=== PATIENT | female | born 1945 | race Caucasian/White ===

== ENCOUNTER 2019-04-29 12:17 | Day surgery (SDC) | payer OTHER ==
[~2019-04-29] VITALS: Ht 152.4 cm; Wt 56.8 kg
[~2019-04-29 12:17] MED LIST: SODIUM CHLORIDE 0.9% 1,000 ML IV ONE
[2019-04-29] MEDS ORDERED: SODIUM CHLORIDE 0.9% 1,000 ML IV ONE (12:20)
[2019-04-29] MEDS ORDERED: BENA10TA12 PO (13:19)
[2019-04-29] MEDS ORDERED: PARO20TA24 PO (13:19)
[2019-04-29] MEDS ORDERED: TRAZ-220 PO (13:19)
[2019-04-29] MEDS ORDERED: OMEP20 PO (13:19)
[2019-04-29] MEDS ORDERED: HYDR25TA PO (13:19)
[2019-04-29] MEDS ORDERED: OMEG10005 PO (13:19)
[2019-04-29] MEDS ORDERED: CALC-1038 PO (13:19)
[2019-04-29] MEDS ORDERED: FentaNYL CITRATE-PF 100 MCG/2 ML VIAL ONE (13:52)
[2019-04-29] MEDS ORDERED: MIDAZOLAM HCL 5 MG/ML VIAL ONE (13:52)
== END 2019-04-29 17:40 | disposition home or self-care (01) ==
LOC: SURGERY 12:17
PROVIDERS: ATTEND Internal Medicine Gastroenterology
DX: K22.2 Esophageal obstruction (principal); K44.9 Diaphragmatic hernia without obstruction or gangrene; K21.9 Gastro-esophageal reflux disease without esophagitis; K29.70 Gastritis, unspecified, without bleeding; E78.00 Pure hypercholesterolemia, unspecified; F32.9 Major depressive disorder, single episode, unspecified; I10 Essential (primary) hypertension; Z79.899 Other long term (current) drug therapy; Z98.890 Other specified postprocedural states
CPT/HCPCS: 43239; 43249; J2250; J3010; J7030

== ENCOUNTER 2020-01-10 18:30 | Inpatient (IN) | payer OTHER, MEDICAID ==
[~2020-01-10] VITALS: Ht 154.9 cm; Wt 56.2 kg
[~2020-01-10 18:30] MED LIST changes: +BENA10TA77 PO; +CALC-1038 PO; +HYDR-1475 PO; +OMEG10005 PO; +OMEP20 PO; +PARO20TA24 PO; -SODIUM CHLORIDE 0.9% 1,000 ML IV ONE; +TRAZ-257 PO
[2020-01-10] MEDS ORDERED: ZOLPIDEM TARTRATE 10 MG TABLET PO PRN (21:30)
[2020-01-10] MEDS ORDERED: HALOPERIDOL 5 MG TABLET PO PRN (21:30)
[2020-01-10] MEDS ORDERED: LORazepam 1 MG TABLET PO PRN (21:30)
[2020-01-10 22:27] VITALS: BP 151/67
[2020-01-10 22:50] VITALS: BP 142/85
[2020-01-10] MEDS ORDERED: ACETAMINOPHEN 325 MG TABLET PO PRN (23:45)
[2020-01-10] MEDS ORDERED: PETROLATUM,WHITE 28 GM JELLY TP PRN (23:45)
[2020-01-10] MEDS ORDERED: MAGNESIUM HYDROXIDE SUSPENSION 30 ML UDCUP PO PRN (23:45)
[2020-01-10] MEDS ORDERED: PNEUMOCOCCAL VACCINE POLYVALENT 0.5 ML VIAL [PPSV23] IM ONE (23:45)
[2020-01-10] MEDS ORDERED: GuaiFENesin/D-METHORPHAN [SUGAR-FREE] 200-20MG/10 ML SYRUP UDCUP PO PRN (23:45)
[2020-01-10] MEDS ORDERED: ALBUTEROL SULFATE HFA 90 MCG/PUFF 8 GM INHALER IH PRN (23:45)
[2020-01-10] MEDS ORDERED: DOCUSATE SODIUM 100 MG CAPSULE PO PRN (23:45)
[2020-01-10] MEDS ORDERED: LOPERAMIDE HCL 2 MG CAPSULE PO PRN (23:45)
[2020-01-10] MEDS ORDERED: MAG HYDROX/AL HYDROX/SIMETH ES 30 ML SUSPENSION UDCUP PO PRN (23:45)
[2020-01-10] MEDS ORDERED: ONDANSETRON HCL 4 MG TABLET PO PRN (23:45)
[2020-01-10] MEDS ORDERED: NICOTINE 14 MG/24 HOUR PATCH TD PRN (23:45)
[2020-01-10] MEDS ORDERED: CloNIDine HCL 0.1 MG TABLET PO PRN (23:45)
[2020-01-11 00:51] VITALS: BP 107/77
[2020-01-11 08:01] LABS: BASOPHILS % (AUTO) 0.5 % (0.0-2.0); EOSINOPHILS % (AUTO) 3.7 % (1.0-6.0); HEMOGLOBIN 11.8 g/dL (12.0-16.0); LYMPHOCYTES # (AUTO) 1.7 K/uL (1.0-4.8); MEAN CORPUSCULAR HEMOGLOBIN 29.5 pg (26.0-34.0); MEAN CORPUSCULAR HGB CONC 32.9 G/dL (31.0-37.0); MEAN CORPUSCULAR VOLUME 90 fL (80-100); MONOCYTES # (AUTO) 0.4 K/uL (0.1-1.0); MONOCYTES % (AUTO) 9.2 % (2.0-9.0); NEUTROPHILS # (AUTO) 2.1 K/uL (1.8-7.7); NEUTROPHILS % (AUTO) 47.6 % (40.0-70.0); PLATELET COUNT (AUTO) 230 K/uL (150-450); RED BLOOD CELL COUNT(AUTO) 4.01 MIL/uL (4.00-5.20); RED CELL DISTRIBUTION WIDTH 13.6 % (11.5-14.5)
[2020-01-11 08:21] LABS: ALANINE AMINOTRANSFERASE 18 U/L (12-78); ALBUMIN 3.2 g/dL (3.4-5.0); ALKALINE PHOSPHATASE 83 U/L (46-116); ANION GAP 5 mmol/L (8-16); ASPARTATE AMINOTRANSFERASE 15 U/L (15-37); BILIRUBIN,TOTAL 0.5 mg/dL (0.1-1.0); CARBON DIOXIDE 29 mmol/L (22-29); CHLORIDE 106 mmol/L (98-107); CHOLESTEROL 145 mg/dL (131-200); CREATININE 0.88 mg/dL (0.60-1.30); FREE T4 (FREE THYROXINE) 1.04 ng/dL (0.76-1.46); GLUCOSE,RANDOM 89 mg/dL (70-110); HDL CHOLESTEROL 49 mg/dL (40-60); LDL CHOL (CALC.) 78 mg/dL (0-130); POTASSIUM 4.6 mmol/L (3.5-5.1); SODIUM SERUM 140 mmol/L (136-145); THYROID STIMULATING HORMONE 3.06 uIU/mL (0.36-3.74); TOTAL PROTEIN, SERUM 6.4 g/dL (6.4-8.2); TRIGLYCERIDES 89 mg/dL (15-150); UREA NITROGEN, BLOOD 11 mg/dL (7-18)
[2020-01-11 08:23] LABS: GLOMERULAR FILTR. RATE CALC > 60 mL/min (>60)
[2020-01-11] MEDS: OMEPRAZOLE 20 MG CAPSULE PO SCH (08:51)
[2020-01-11] MEDS: BENAZEPRIL HCL 10 MG TABLET PO SCH (08:51)
[2020-01-11] MEDS: HYDROCHLOROTHIAZIDE 25 MG TABLET PO SCH (08:51)
[2020-01-11] MEDS: OMEGA-3/DHA/EPA/FISH OIL 1,000 MG CAPSULE PO SCH (08:52)
[2020-01-11] MEDS: CALCIUM CARBONATE 500 MG CHEWABLE TABLET CHEW SCH (08:52)
[2020-01-11 08:55] VITALS: BP 115/66
[2020-01-11 16:52] VITALS: BP 101/64
[2020-01-11] MEDS: RisperiDONE 0.5 MG TABLET PO SCH (17:48)
[2020-01-12] MEDS ORDERED: TraZODone HCL 100 MG TABLET PO SCH (09:00)
[2020-01-12] MEDS: PARoxetine HCL 20 MG TABLET PO SCH (10:01)
[2020-01-12] MEDS: HYDROCHLOROTHIAZIDE 25 MG TABLET PO SCH (10:01)
[2020-01-12] MEDS: RisperiDONE 0.5 MG TABLET PO SCH ×2 (10:01→16:45)
[2020-01-12] MEDS: OMEGA-3/DHA/EPA/FISH OIL 1,000 MG CAPSULE PO SCH (10:01)
[2020-01-12] MEDS: OMEPRAZOLE 20 MG CAPSULE PO SCH (10:01)
[2020-01-12] MEDS: CALCIUM CARBONATE 500 MG CHEWABLE TABLET CHEW SCH (10:01)
[2020-01-12] MEDS: BENAZEPRIL HCL 10 MG TABLET PO SCH (10:01)
[2020-01-12 11:16] VITALS: BP 121/71
[2020-01-12 15:35] VITALS: BP 106/70
[2020-01-12 16:25] VITALS: BP 106/70
[2020-01-12] MEDS: TraZODone HCL 100 MG TABLET PO SCH (20:35)
[2020-01-13 06:17] VITALS: BP 124/77
[2020-01-13 08:38] VITALS: BP 140/83
[2020-01-13] MEDS: RisperiDONE 0.5 MG TABLET PO SCH ×2 (08:49→16:35)
[2020-01-13] MEDS: OMEGA-3/DHA/EPA/FISH OIL 1,000 MG CAPSULE PO SCH (08:49)
[2020-01-13] MEDS: BENAZEPRIL HCL 10 MG TABLET PO SCH (08:49)
[2020-01-13] MEDS: OMEPRAZOLE 20 MG CAPSULE PO SCH (08:50)
[2020-01-13] MEDS: CALCIUM CARBONATE 500 MG CHEWABLE TABLET CHEW SCH (08:50)
[2020-01-13] MEDS: HYDROCHLOROTHIAZIDE 25 MG TABLET PO SCH (08:50)
[2020-01-13] MEDS: PARoxetine HCL 20 MG TABLET PO SCH (08:50)
[2020-01-13 16:19] VITALS: BP 128/70
[2020-01-13] MEDS: TraZODone HCL 100 MG TABLET PO SCH (20:31)
[2020-01-14 04:56] VITALS: BP 126/79
[2020-01-14 08:04] VITALS: BP 114/73
[2020-01-14] MEDS: BENAZEPRIL HCL 10 MG TABLET PO SCH (08:38)
[2020-01-14] MEDS: CALCIUM CARBONATE 500 MG CHEWABLE TABLET CHEW SCH (08:38)
[2020-01-14] MEDS: RisperiDONE 0.5 MG TABLET PO SCH ×2 (08:38→16:42)
[2020-01-14] MEDS: OMEGA-3/DHA/EPA/FISH OIL 1,000 MG CAPSULE PO SCH (08:38)
[2020-01-14] MEDS: OMEPRAZOLE 20 MG CAPSULE PO SCH (08:39)
[2020-01-14] MEDS: HYDROCHLOROTHIAZIDE 25 MG TABLET PO SCH (08:39)
[2020-01-14] MEDS: PARoxetine HCL 10 MG TABLET PO SCH (08:39)
[2020-01-14 16:14] VITALS: BP 134/67
[2020-01-14] MEDS: TraZODone HCL 100 MG TABLET PO SCH (20:24)
[2020-01-15 01:17] VITALS: BP 131/78
[2020-01-15 08:17] VITALS: BP 139/90
[2020-01-15] MEDS: CALCIUM CARBONATE 500 MG CHEWABLE TABLET CHEW SCH (08:31)
[2020-01-15] MEDS: OMEPRAZOLE 20 MG CAPSULE PO SCH (08:31)
[2020-01-15] MEDS: OMEGA-3/DHA/EPA/FISH OIL 1,000 MG CAPSULE PO SCH (08:31)
[2020-01-15] MEDS: BENAZEPRIL HCL 10 MG TABLET PO SCH (08:31)
[2020-01-15] MEDS: HYDROCHLOROTHIAZIDE 25 MG TABLET PO SCH (08:31)
[2020-01-15] MEDS: RisperiDONE 0.5 MG TABLET PO SCH ×2 (08:31→16:44)
[2020-01-15] MEDS: PARoxetine HCL 10 MG TABLET PO SCH (08:31)
[2020-01-15] MEDS: IBUPROFEN 400 MG TABLET PO PRN (10:23)
[2020-01-15 16:30] VITALS: BP 104/65
[2020-01-15] MEDS: TraZODone HCL 100 MG TABLET PO SCH (20:12)
[2020-01-16 05:55] VITALS: BP 123/84
[2020-01-16] MEDS: RisperiDONE 0.5 MG TABLET PO SCH ×2 (08:01→16:35)
[2020-01-16] MEDS: BENAZEPRIL HCL 10 MG TABLET PO SCH (08:01)
[2020-01-16] MEDS: PARoxetine HCL 10 MG TABLET PO SCH (08:01)
[2020-01-16] MEDS: HYDROCHLOROTHIAZIDE 25 MG TABLET PO SCH (08:02)
[2020-01-16] MEDS: CALCIUM CARBONATE 500 MG CHEWABLE TABLET CHEW SCH (08:02)
[2020-01-16] MEDS: OMEGA-3/DHA/EPA/FISH OIL 1,000 MG CAPSULE PO SCH (08:02)
[2020-01-16] MEDS: OMEPRAZOLE 20 MG CAPSULE PO SCH (08:02)
[2020-01-16 08:12] VITALS: BP 139/78
[2020-01-16 16:12] VITALS: BP 119/61
[2020-01-16] MEDS: IBUPROFEN 400 MG TABLET PO PRN (19:01)
[2020-01-16 19:02] VITALS: BP 106/68
[2020-01-16] MEDS: TraZODone HCL 100 MG TABLET PO SCH (20:59)
[2020-01-17 00:31] VITALS: BP 100/57
[2020-01-17] MEDS: HYDROCHLOROTHIAZIDE 25 MG TABLET PO SCH (08:47)
[2020-01-17] MEDS: BENAZEPRIL HCL 10 MG TABLET PO SCH (08:48)
[2020-01-17] MEDS: PARoxetine HCL 10 MG TABLET PO SCH (08:48)
[2020-01-17] MEDS: OMEGA-3/DHA/EPA/FISH OIL 1,000 MG CAPSULE PO SCH (08:48)
[2020-01-17] MEDS: OMEPRAZOLE 20 MG CAPSULE PO SCH (08:48)
[2020-01-17] MEDS: RisperiDONE 0.5 MG TABLET PO SCH ×2 (08:48→17:06)
[2020-01-17] MEDS: CALCIUM CARBONATE 500 MG CHEWABLE TABLET CHEW SCH (08:48)
[2020-01-17 08:52] VITALS: BP 130/68
[2020-01-17 16:07] VITALS: BP 121/83
[2020-01-17] MEDS: TraZODone HCL 100 MG TABLET PO SCH (20:38)
[2020-01-18] MEDS ORDERED: RISP.5 PO (02:50)
[2020-01-18 06:28] VITALS: BP 123/68
[2020-01-18 08:49] VITALS: BP 120/55
[2020-01-18] MEDS: OMEPRAZOLE 20 MG CAPSULE PO SCH (09:19)
[2020-01-18] MEDS: CALCIUM CARBONATE 500 MG CHEWABLE TABLET CHEW SCH (09:19)
[2020-01-18] MEDS: OMEGA-3/DHA/EPA/FISH OIL 1,000 MG CAPSULE PO SCH (09:19)
[2020-01-18] MEDS: HYDROCHLOROTHIAZIDE 25 MG TABLET PO SCH (09:19)
[2020-01-18 09:20] VITALS: BP 128/82
[2020-01-18] MEDS: IBUPROFEN 400 MG TABLET PO PRN (09:20)
[2020-01-18] MEDS: PARoxetine HCL 10 MG TABLET PO SCH (09:20)
[2020-01-18] MEDS: RisperiDONE 0.5 MG TABLET PO SCH ×2 (09:20→17:12)
[2020-01-18] MEDS: BENAZEPRIL HCL 10 MG TABLET PO SCH (09:20)
[2020-01-18 16:42] VITALS: BP 140/61
[2020-01-18] MEDS: TraZODone HCL 100 MG TABLET PO SCH (20:23)
[2020-01-19 01:11] VITALS: BP 125/63
[2020-01-19] MEDS: OMEPRAZOLE 20 MG CAPSULE PO SCH (08:34)
[2020-01-19] MEDS: CALCIUM CARBONATE 500 MG CHEWABLE TABLET CHEW SCH (08:34)
[2020-01-19] MEDS: RisperiDONE 0.5 MG TABLET PO SCH ×2 (08:34→17:06)
[2020-01-19] MEDS: BENAZEPRIL HCL 10 MG TABLET PO SCH (08:34)
[2020-01-19] MEDS: PARoxetine HCL 10 MG TABLET PO SCH (08:34)
[2020-01-19] MEDS: HYDROCHLOROTHIAZIDE 25 MG TABLET PO SCH (08:34)
[2020-01-19] MEDS: OMEGA-3/DHA/EPA/FISH OIL 1,000 MG CAPSULE PO SCH (08:34)
[2020-01-19] MEDS: IBUPROFEN 400 MG TABLET PO PRN ×2 (08:42→17:06)
[2020-01-19 09:02] VITALS: BP 140/87
[2020-01-19 16:29] VITALS: BP 122/65
[2020-01-19] MEDS: TraZODone HCL 100 MG TABLET PO SCH (20:16)
[2020-01-20 00:37] VITALS: BP 135/82
[2020-01-20] MEDS: CALCIUM CARBONATE 500 MG CHEWABLE TABLET CHEW SCH (08:15)
[2020-01-20] MEDS: OMEPRAZOLE 20 MG CAPSULE PO SCH (08:15)
[2020-01-20] MEDS: RisperiDONE 0.5 MG TABLET PO SCH ×2 (08:15→17:00)
[2020-01-20] MEDS: PARoxetine HCL 10 MG TABLET PO SCH (08:15)
[2020-01-20] MEDS: HYDROCHLOROTHIAZIDE 25 MG TABLET PO SCH (08:15)
[2020-01-20] MEDS: OMEGA-3/DHA/EPA/FISH OIL 1,000 MG CAPSULE PO SCH (08:15)
[2020-01-20] MEDS: BENAZEPRIL HCL 10 MG TABLET PO SCH (08:17)
[2020-01-20 08:32] VITALS: BP 122/60
[2020-01-20] MEDS ORDERED: PARO10TA89 PO (13:55)
== END 2020-01-20 16:15 | disposition home or self-care (01) | DRG 885 ==
LOC: B2S 22:41
PROVIDERS: ADMIT Psychiatry & Neurology Psychiatry; ATTEND Psychiatry & Neurology Psychiatry
DX: F33.2 Major depressive disorder, recurrent severe without psychotic features (principal); E78.00 Pure hypercholesterolemia, unspecified; D64.9 Anemia, unspecified; I10 Essential (primary) hypertension; K21.9 Gastro-esophageal reflux disease without esophagitis; Z91.81 History of falling; Z79.899 Other long term (current) drug therapy
CPT/HCPCS: 83036; 84436; 84439; 84443

== ENCOUNTER 2020-12-10 10:58 | Day surgery (SDC) | payer OTHER ==
[2020-12-08 17:44] LABS: COVID AG,FIA SOURCE NASOPHARYNGEAL
[~2020-12-10 10:58] MED LIST changes: +BENA10TA76 PO; -BENA10TA77 PO; -HYDR-1475 PO; +LORA10TA7 PO; +MIRT30 PO; +OLAN10TA3 PO; -OMEG10005 PO; -PARO20TA24 PO; +SIMV-259 PO; +SODIUM CHLORIDE 0.9% 1,000 ML IV ONE; +SODIUM CHLORIDE 0.9% 1,000 ML ONE; -TRAZ-257 PO; +VENL-68 PO
[2020-12-10] MEDS ORDERED: PROPOFOL 1% 20 ML VIAL IVP ONE (10:59)
[2020-12-10] MEDS ORDERED: LIDOCAINE/PF 2% 5 ML SYRINGE IVP ONE (10:59)
== END 2020-12-10 15:00 | disposition home or self-care (01) ==
LOC: SURGERY 10:58
PROVIDERS: ATTEND Student in an Organized Health Care Education/Training Program
DX: K31.89 Other diseases of stomach and duodenum (principal); K44.9 Diaphragmatic hernia without obstruction or gangrene; K29.70 Gastritis, unspecified, without bleeding; E78.00 Pure hypercholesterolemia, unspecified; I10 Essential (primary) hypertension; K21.9 Gastro-esophageal reflux disease without esophagitis; Z20.822 Contact with and (suspected) exposure to COVID-19; Z79.899 Other long term (current) drug therapy; F32.9 Major depressive disorder, single episode, unspecified
CPT/HCPCS: 43239; 87426; 88305; 88312; 88313; 93005; C9803; J2704; J3490; J7030

== ENCOUNTER 2023-01-23 07:46 | Day surgery (SDC) | payer OTHER ==
[2023-01-20 15:00] LABS: COVID AG,FIA SOURCE NASAL SWAB
[~2023-01-23] VITALS: Ht 157.5 cm; Wt 61.8 kg
[~2023-01-23 07:46] MED LIST changes: +MIRT-149 PO; -MIRT30 PO; -OLAN10TA3 PO; +OLAN10TA74 PO; -SODIUM CHLORIDE 0.9% 1,000 ML IV ONE; -SODIUM CHLORIDE 0.9% 1,000 ML ONE
[2023-01-23] MEDS ORDERED: PROPOFOL 1% 20 ML VIAL IVP ONE (07:47)
[2023-01-23] MEDS ORDERED: LIDOCAINE/PF 2% 5 ML VIAL IM ONE (07:47)
[2023-01-23] MEDS ORDERED: SODIUM CHLORIDE 0.9% 1,000 ML IV ONE (08:00)
[2023-01-23] MEDS ORDERED: SODIUM CHLORIDE 0.9% 1,000 ML ONE (08:08)
== END 2023-01-23 11:50 | disposition home or self-care (01) ==
LOC: SURGERY 07:46
PROVIDERS: ATTEND Internal Medicine Gastroenterology
DX: K29.70 Gastritis, unspecified, without bleeding (principal); K44.9 Diaphragmatic hernia without obstruction or gangrene; K22.2 Esophageal obstruction; K21.9 Gastro-esophageal reflux disease without esophagitis; F32.A Depression, unspecified; I10 Essential (primary) hypertension; Z98.890 Other specified postprocedural states; Z20.822 Contact with and (suspected) exposure to COVID-19; Z79.899 Other long term (current) drug therapy
CPT/HCPCS: 87426; 43249; 43239; 88305; 88312; 88313; C9803; C1769; J2704; J3490; J7030